=== PATIENT | female | born 1990 | race Caucasian/White ===

== ENCOUNTER 2021-11-28 16:58 | Emergency (ER) | payer OTHER ==
[2021-11-28] MEDS ORDERED: BACTROBAN OINT22 GM EXT (17:16)
[2021-11-28] MEDS ORDERED: CEPHALEXIN500 MG PO (17:16)
== END 2021-11-28 18:21 | disposition home or self-care (01) ==
LOC: ER1 16:58
DX: L03.114 Cellulitis of left upper limb (principal); F17.200 Nicotine dependence, unspecified, uncomplicated; J45.909 Unspecified asthma, uncomplicated
CPT/HCPCS: 99282

== ENCOUNTER 2022-03-11 22:20 | Emergency (ER) | payer OTHER ==
[~2022-03-11 22:20] MED LIST: BACTROBAN OINT22 GM EXT; CEPHALEXIN500 MG PO
[2022-03-12] MEDS ORDERED: CORTISPORIN OTI10 ML EARLF (02:31)
== END 2022-03-12 02:30 | disposition home or self-care (01) ==
LOC: ER1 22:20
DX: H61.22 Impacted cerumen, left ear (principal); H60.92 Unspecified otitis externa, left ear; J45.909 Unspecified asthma, uncomplicated; R40.2410 Glasgow coma scale score 13-15, unspecified time
CPT/HCPCS: 69210; 99282